=== PATIENT | male | born 1980 | race African-American/Black ===

== ENCOUNTER 2018-09-08 06:18 | Emergency (ER) | payer OTHER ==
[~2018-09-08] VITALS: Ht 170.2 cm; Wt 71.0 kg
[2018-09-08 07:30] VITALS: BP 119/84
== END 2018-09-08 07:39 | disposition home or self-care (01) ==
LOC: ER 06:18
DX: L29.0 Pruritus ani (principal); F12.10 Cannabis abuse, uncomplicated
CPT/HCPCS: 99283

== ENCOUNTER 2019-04-22 12:38 | Emergency (ER) | payer OTHER ==
[~2019-04-22] VITALS: Ht 170.2 cm; Wt 70.0 kg
[2019-04-22] MEDS ORDERED: KETOROLAC 60MG/2ML VIAL IM ONE (13:00)
[2019-04-22 14:36] VITALS: BP 123/81
== END 2019-04-22 14:34 | disposition home or self-care (01) ==
LOC: ER 12:38
DX: S92.492A Other fracture of left great toe, initial encounter for closed fracture (principal); F12.10 Cannabis abuse, uncomplicated; X58.XXXA Exposure to other specified factors, initial encounter; Y93.89 Activity, other specified; Y92.89 Other specified places as the place of occurrence of the external cause; Y99.8 Other external cause status; Z87.891 Personal history of nicotine dependence
CPT/HCPCS: 29515; 73660; 96372; 99283; J1885; Z7610

== ENCOUNTER 2020-05-02 06:36 | Emergency (ER) | payer MEDICAID, OTHER ==
[~2020-05-02] VITALS: Ht 175.3 cm; Wt 82.0 kg
[2020-05-02 07:02] VITALS: BP 121/85
[2020-05-02 08:37] LABS: CLARITY URINE CLEAR (CLEAR); COLOR URINE YELLOW (YELLOW); KETONES URINE TRACE (NEGATIVE); LEUKOCYTE ESTERASE URINE 2+ (NEGATIVE); NITRITE URINE NEGATIVE (NEGATIVE); OCCULT BLOOD URINE NEGATIVE (NEGATIVE); PH URINE 5.5 (4.5-8.0); PROTEIN URINE 1+ (NEGATIVE); SPECIFIC GRAVITY URINE 1.026 (1.005-1.030); UROBILINOGEN URINE 0.2 E.U./dL (0.2-1.0)
[2020-05-02] MEDS ORDERED: CEPHALEXIN 250MG CAPSULE PO ONE (10:00)
== END 2020-05-02 10:25 | disposition home or self-care (01) ==
LOC: ER 06:36
DX: N39.0 Urinary tract infection, site not specified (principal); F12.10 Cannabis abuse, uncomplicated
CPT/HCPCS: 76770; 81003; 99283

== ENCOUNTER 2024-03-04 20:24 | Emergency (ER) | payer MEDICAID ==
[~2024-03-04] VITALS: Ht 175.3 cm; Wt 92.0 kg
[2024-03-04 20:39] VITALS: O2SAT 97
[2024-03-04] MEDS: HYDROCODONE/ACETAMINOPHEN 5/325MG TABLET PO STA (23:54)
[2024-03-05] MEDS ORDERED: AMOXICILLIN/POTASSIUM CLAVULANATE 875/125MG TAB PO ONE (01:30)
[2024-03-05] MEDS ORDERED: LIDOCAINE HCL/PF 1% 10 MG/ML 5ML VIAL INFIL ONE (01:30)
[2024-03-05] MEDS ORDERED: AMOXICILLIN/POTASSIUM CLAVULANATE 875/125MG TAB PO NR (02:00)
[2024-03-05] MEDS ORDERED: HYDR-4001 MT (02:20)
[2024-03-05] MEDS ORDERED: AMOX1TAB16 MT (02:20)
[2024-03-05 02:31] VITALS: BP 128/87; PULSE 81; RESP 14; TEMP 98.9
== END 2024-03-05 02:32 | disposition home or self-care (01) ==
LOC: ER 20:24
DX: S01.512A Laceration without foreign body of oral cavity, initial encounter (principal); F12.10 Cannabis abuse, uncomplicated; Y08.89XA Assault by other specified means, initial encounter; Y93.89 Activity, other specified; Y92.89 Other specified places as the place of occurrence of the external cause; Y99.8 Other external cause status
CPT/HCPCS: 99284; 70450; 70486; J3490

== ENCOUNTER 2025-11-07 14:29 | Emergency (ER) | payer BC, MEDICAID ==
[~2025-11-07] VITALS: Ht 175.3 cm; Wt 75.0 kg
[~2025-11-07 14:29] MED LIST: AMOX1TAB16 MT; HYDR-4001 MT
[2025-11-07 14:36] VITALS: TEMP 98.6; O2SAT 99
[2025-11-07 17:45] VITALS: BP 141/95; PULSE 100; RESP 18; O2SAT 97
== END 2025-11-07 17:47 | disposition home or self-care (01) ==
LOC: ER 14:29
DX: M79.641 Pain in right hand (principal); I10 Essential (primary) hypertension
CPT/HCPCS: 73100; 73120; 99284